=== PATIENT | female | born 1960 | race Hispanic/Latino ===

== ENCOUNTER 2020-10-23 14:09 | Emergency (ER) | payer MEDICARE ==
--- NOTE | 2020-10-23 15:52 | Emergency Department Report ---
Blank Doc - Documentation Documentation: 60-year-old female that presents with depression. Denies any suicidal or homi cidal ideation. Patient states she wants to be seen for psychiatric consult. 1- This initial assessment/diagnostic orders/clinical plan/ treatment(s) is/are subject to change based on pt's health status, clinical progression and re- assessment by fellow clinical providers in the ED. Further treatment and workup at subsequent clinical provers discretion. Patient/guardians urged not to elope from ED as their condition may be serious if not clinically assessed and managed. 2-psych protocol
[2020-10-23 16:58] LABS: Basophils % (Auto) 0.3 % (0.0-1.8); Eosinophils # (Auto) 0.2 K/mm3 (0.0-0.4); Hematocrit 40.4 % (30.3-42.9); Hemoglobin 14.3 gm/dl (10.1-14.3); Lymphocytes # (Auto) 1.7 K/mm3 (1.2-5.4); Lymphocytes % (Auto) 15.7 % (13.4-35.0); Mean Corpuscular HGB Conc 36 % (30-34); Mean Corpuscular Volume 93 fl (79-97); Monocytes # (Auto) 0.8 K/mm3 (0.0-0.8); Monocytes % (Auto) 7.7 % (0.0-7.3); Platelet Count 125 K/mm3 (140-440); Red Blood Count 4.33 M/mm3 (3.65-5.03); Red Cell Distribution Width 13.5 % (13.2-15.2)
[2020-10-23 17:10] LABS: Blood Urea Nitrogen 9 mg/dL (7-17); Calcium 9.4 mg/dL (8.4-10.2); Hemolysis Index 5
[2020-10-23 17:12] LABS: BUN/Creatinine Ratio 13
[2020-10-23] MEDS ORDERED: diphenhydrAMINE 25 MG CAP PO PRN (23:45)
[2020-10-23] MEDS ORDERED: ACETAMINOPHEN 325 MG TAB PO PRN (23:45)
[2020-10-23] MEDS ORDERED: LORazepam 2 MG/ML VIAL IM PRN (23:45)
[2020-10-23] MEDS ORDERED: PROMETHAZINE 25 MG TAB PO PRN (23:49)
--- NOTE | 2020-10-23 23:59 | Emergency Department Report ---
ED General Adult HPI - General Chief complaint: Psych Stated complaint: MENTAL HEALTH PUI?: No Time Seen by Provider: 10/23/20 15:50 Source: patient, RN notes reviewed, old records reviewed Mode of arrival: Ambulatory Limitations: No Limitations - History of Present Illness Initial comments: The patient was evaluated in the emergency department for symptoms described in the history of present illness. He/she was evaluated in the context of the global COVID-19 pandemic, which necessitated consideration that the patient might be at risk for infection with the virus that causes COVID-19. Institutional protocols and algorithms that pertain to the evaluation of patients at risk for COVID-19 are in a state of rapid change based on information released by regulatory bodies including the CDC and federal and state organizations. These policies and algorithms were followed during the patient's care in the emergency department. Please note that these policies, procedures and recommendations changed on a rapid basis. The patient is a 60-year-old female who presents to the ER today with a complaint of suicidality. She states that she was living with her son, and she was kicked out of his house a few days ago, "because I was doing drugs." The patient has not attempted to overdose on anything by her history. She complains of chronic back pain and headache, "because I was sitting in the waiting room for too long." The patient states she received 2 COVID-19 vaccinations, and denies Covid symptomatology. The patient states that she was using recreational drugs a few days ago, and she may have had a seizure or convulsive events, in front of the children of her son. Because of this, she reports that her son k icked her out of the house. The patient denies neck pain, chest pain, abdominal pain, new/different shortness of breath, urinary symptoms. She is not having homicidal thoughts, she does not have access to guns or firearms. Her past medical history includes bronchitis/COPD, hypothyroidism, chronic headaches, and history of overdose. She may also have a history of dependent edema, high cholesterol, GERD/, gastritis, And possible CHF. Sensation of depression and suicidality constant for the past few days. Worsens after being kicked out of the house. No relieving factors that she articulates. -: Gradual, days(s) Quality: other Consistency: other Improves with: other Worsens with: other Associated Symptoms: other - Related Data Home Medications Medication Instructions Recorded Confirmed Last Taken Levothyroxine [Synthroid] 100 mcg PO DAILY 03/01/13 06/12/13 06/11/13 Primidone [Mysoline] 50 mg PO QID 03/01/13 06/12/13 06/11/13 Aspirin [Aspirin Enteric Coated] 81 mg PO DAILY 06/12/13 06/12/13 06/11/13 Baclofen [Lioresal] 10 mg PO QID 06/12/13 06/12/13 06/11/13 Clorazepate Dipotassium (Nf) 7.5 mg PO TID 06/12/13 06/12/13 06/11/13 [Tranxene (Nf)] Dicyclomine [Bentyl] 20 mg PO QID 06/12/13 06/12/13 06/11/13 Divalproex [Maurice Rebolledo] 500 mg PO QAM 06/12/13 06/12/13 06/11/[address] [place]] 1,000 mg PO QPM 06/12/13 06/12/13 06/11/13 Metoprolol [Lopressor TAB] 25 mg PO BID 06/12/13 06/12/13 06/11/13 Pantoprazole [Protonix TAB] 40 mg PO DAILY 06/12/13 06/12/13 06/11/13 QUEtiapine [Seroquel] 100 mg PO QAM 06/12/13 06/12/13 06/11/13 QUEtiapine [Seroquel] 300 mg PO QHS 06/12/13 06/12/13 06/11/13 buPROPion XL [Wellbutrin Xl] 150 mg PO DAILY 06/12/13 06/12/13 06/11/13 buprenorphine hcl [Subutex] 2 mg PO TID 06/12/13 06/12/13 06/11/13 glipiZIDE [Glucotrol] 5 mg PO BID 06/12/13 06/12/13 06/11/13 Previous Rx's Medication Instructions Recorded Last Taken Type Albuterol *Only Ed* [Proventil 2.5 mg IH Q6HRT PRN #1 nebu 07/06/13 Unknown Rx 0.5% NEBS] Tiotropium [Spiriva] 1 puff IH Q24HRT #1 box 07/06/13 Unknown Rx amLODIPine 10 mg PO QDAY #30 tablet 07/06/13 Unknown Rx Nitrofurantoin [place]/M-Cryst 100 mg PO Q12HR #13 capsule 10/24/20 Unknown Rx [Macrobid CAP] Allergies Allergy/AdvReac Type Severity Reaction Status Date / Time Sulfa (Sulfonamide Allergy Severe Swelling Verified 06/19/13 16:46 Antibiotics) morphine Allergy Unknown Unknown Verified 03/01/13 15:37 ED Review of Systems ROS: Stated complaint: MENTAL HEALTH Other details as noted in HPI Constitutional: other (Denies loss of taste and smell) Eyes: denies: eye discharge ENT: denies: epistaxis Respiratory: cough (Chronic cough) Cardiovascular: denies: chest pain Gastrointestinal: denies: abdominal pain Genitourinary: denies: dysuria Musculoskeletal: arthralgia Neurological: headache, weakness Psychiatric: suicidal thoughts ED Past Medical Hx - Past Medical History Previous Medical History?: Yes Hx Hypertension: Yes Hx Congestive Heart Failure: No Hx Diabetes: Yes Hx GERD: Yes Hx Seizures: Yes Hx Psychiatric Treatment: Yes (psychosis) Hx Asthma: No Hx COPD: No Additional medical history: back pain - Surgical History Past Surgical History?: Yes Hx Pacemaker: Yes - Social History Smoking Status: Current Every Day Smoker Substance Use Type: Alcohol, Marijuana, Methamphetamines - Medications Home Medications: Home Medications Medication Instructions Recorded Confirmed Last Taken Type Levothyroxine [Synthroid] 100 mcg PO DAILY 03/01/13 06/12/13 06/11/13 History Primidone [Mysoline] 50 mg PO QID 03/01/13 06/12/13 06/11/13 History Aspirin [Aspirin Enteric Coated] 81 mg PO DAILY 06/12/13 06/12/13 06/11/13 Hi story Baclofen [Lioresal] 10 mg PO QID 06/12/13 06/12/13 06/11/13 History Clorazepate Dipotassium (Nf) 7.5 mg PO TID 06/12/13 06/12/13 06/11/13 History [Tranxene (Nf)] Dicyclomine [Bentyl] 20 mg PO QID 06/12/13 06/12/13 06/11/13 History Divalproex [Depakote Dr] 500 mg PO QAM 06/12/13 06/12/13 06/11/[address] [Depakote] 1,000 mg PO QPM 06/12/13 06/12/13 06/11/13 History Metoprolol [Lopressor TAB] 25 mg PO BID 06/12/13 06/12/13 06/11/13 History Pantoprazole [Protonix TAB] 40 mg PO DAILY 06/12/13 06/12/13 06/11/13 History QUEtiapine [Seroquel] 100 mg PO QAM 06/12/13 06/12/13 06/11/13 History QUEtiapine [Seroquel] 300 mg PO QHS 06/12/13 06/12/13 06/11/13 History buPROPion XL [Wellbutrin Xl] 150 mg PO DAILY 06/12/13 06/12/13 06/11/13 History buprenorphine hcl [Subutex] 2 mg PO TID 06/12/13 06/12/13 06/11/13 History glipiZIDE [Glucotrol] 5 mg PO BID 06/12/13 06/12/13 06/11/13 History Albuterol *Only Ed* [Proventil 2.5 mg IH Q6HRT PRN #1 nebu 07/06/13 Unknown Rx 0.5% NEBS] Tiotropium [Spiriva] 1 puff IH Q24HRT #1 box 07/06/13 Unknown Rx amLODIPine 10 mg PO QDAY #30 tablet 07/06/13 Unknown Rx Nitrofurantoin [place]/M-Cryst 100 mg PO Q12HR #13 capsule 10/24/20 Unknown Rx [Macrobid CAP] ED Physical Exam - General Limitations: No Limitations General appearance: alert, anxious, obese - Head Head exam: Present: atraumatic, normocephalic - Eye Eye exam: Present: normal appearance, EOMI - ENT ENT exam: Present: normal exam, normal orophraynx, mucous membranes moist, normal external ear exam - Neck Neck exam: Present: normal inspection, full ROM. Absent: tenderness, me ningismus - Respiratory Respiratory exam: Present: normal lung sounds bilaterally. Absent: respiratory distress, wheezes, rales, rhonchi, stridor, decreased breath sounds, prolonged expiratory - Cardiovascular Cardiovascular Exam: Present: regular rate, normal rhythm, normal heart sounds. Absent: bradycardia, tachycardia, irregular rhythm, systolic murmur, diastolic murmur, rubs, gallop - GI/Abdominal GI/Abdominal exam: Present: soft. Absent: distended, tenderness, guarding, rebound, rigid, pulsatile mass - Extremities Exam Extremities exam: Present: normal inspection, full ROM, other (2+ pulses noted in the bilateral upper and lower extremities. There is no palpable cord. negative Homans sign. Muscular compartments are soft. The pelvis is stable.). Absent: pedal edema, calf tenderness - Back Exam Back exam: Present: normal inspection. Absent: tenderness, CVA tenderness (R), CVA tenderness (L), paraspinal tenderness, vertebral tenderness - Neurological Exam Neurological exam: Present: alert, oriented X3, normal gait, other (No facial droop. Tongue midline. Extraocular movements intact bilaterally. Facial sensation intact to light touch in V1, V2, V3 distribution bilaterally. 5 and a 5 strength in 4 extremities. Sensation intact to light touch in 4 extremities.). Absent: motor sensory deficit - Psychiatric Psychiatric exam: Present: suicidal ideation - Skin Skin exam: Present: warm, dry, intact, normal color. Absent: rash ED Course Vital Signs 10/23/20 10/24/20 10/24/20 15:47 06:47 08:05 Temperature 98.6 F 98.4 F Pulse Rate 82 90 Respiratory 18 18 18 Rate Blood Pressure 164/85 Blood Pressure 103/67 [Left] O2 Sat by Pulse 96 96 Oximetry 10/24/20 10/24/20 20:11 20:26 Temperature 98.0 F Pulse Rate 60 Respiratory 16 18 Rate Blood Pressure Blood Pressure 119/61 [Left] O2 Sat by Pulse 95 Oximetry - Reevaluation(s) Reevaluation #1: 10/24/20 00:18 Differential diagnosis, including but not limited to: Secondary gain, suicidality, medical clearance for psychiatric placement, history of seizure Assessment and plan: 60-year-old female, who is clinically sober and walks with a steady gait, with a GCS of 15, who presents to the ER today with a complaint of suicidality, in the context of being kicked out of her son's house, after reportedly using recreational drugs, and having had a convulsive event in front of her grandchildren. Placed on hold status, home medications reconciled, EKG fairly unremarkable, urinalysis pending, noncontrast CT scan of brain ordered. Patient has completed COVID-19 vaccination series, however, we will order Covid swab, case psychiatry team recommends 1013 hold and placement. Have discussed this plan of care with the patient, who verbalized understanding, and is amenable to this plan of care. Reassess after CT scan has resulted. 10/24/20 00:20 I do suspect that the patient may be presenting for the purposes of secondary gain, as it appears she does not have a place to go. However, I will defer to the psychiatry team to further investigate this. At the moment, she does not appear to have an immediate medical contraindication which would preclude psychiatric admission, evaluation, consultation and placement. However, if the psychiatry team recommends no acute inpatient psychiatric hospitalization, from a medical safety and suitability standpoint, it would be reasonable to discharge the patient with outpatient follow-up. She should not drive or operate motor vehicles for the next 6 months. Reevaluation #2: 10/24/20 22:11 The patient was cleared by the psychiatry team. The patient is awake, alert, oriented, sober, walks with a steady gait and exhibits decision-making capacity. This patient has the ability to care for herself independently. The patient will be given a list of homeless shelters if she so desires. In addition, it appears that keys were dropped off for her car earlier on this evening. The patient does not have an emergent medical condition at this time which requires further medical observation, or work-up. She was deemed psychiatrically suitable for discharge. This patient also demonstrates the ability, thought process and lucidity care to care for herself independently She will be discharged at this time. ED Medical Decision Making - Lab Data Result diagrams: 10/23/20 16:05 10/23/20 16:05 Vital Signs 10/23/20 15:47 Temperature 98.6 F Pulse Rate 82 Respiratory 18 Rate Blood Pressure 164/85 O2 Sat by Pulse 96 Oximetry Lab Results 10/23/20 10/23/20 10/23/20 Range/Units 16:05 16:05 16:05 WBC 10.9 (4.5-11.0) K/mm3 RBC 4.33 (3.65-5.03) M/mm3 Hgb 14.3 (10.1-14.3) gm/dl Hct 40.4 (30.3-42.9) % MCV 93 (79-97) fl MCH 33 H (28-32) pg MCHC 36 H (30-34) % RDW 13.5 (13.2-15.2) % Plt Count 125 L (140-440) K/mm3 Lymph % (Auto) 15.7 (13.4-35.0) % [place] % (Auto) 7.7 H (0.0-7.3) % Eos % (Auto) 2.0 (0.0-4.3) % Baso % (Auto) 0.3 (0.0-1.8) % Lymph # (Auto) 1.7 (1.2-5.4) K/mm3 [place] # (Auto) 0.8 (0.0-0.8) K/mm3 Eos # (Auto) 0.2 (0.0-0.4) K/mm3 Baso # (Auto) 0.0 (0.0-0.1) K/mm3 Seg Neutrophils % 74.3 H (40.0-70.0) % Seg Neutrophils # 8.1 H (1.8-7.7) K/mm3 Sodium 138 (137-145) mmol/L Potassium 4.0 (3.6-5.0) mmol/L Chloride 97.1 L (98-107) mmol/L Carbon Dioxide 31 H (22-30) mmol/L Anion Gap 14 mmol/L BUN 9 (7-17) mg/dL Creatinine 0.7 (0.6-1.2) mg/dL Estimated GFR > 60 ml/min BUN/Creatinine Ratio 13 % Glucose 86 (65-100) mg/dL Calcium 9.4 (8.4-10.2) mg/dL Salicylates < 0.3 L (2.8-20.0) mg/dL Acetaminophen (10.0-30.0) ug/mL Plasma/Serum Alcohol (0-0.07) % 10/23/20 10/23/20 Range/Units 16:05 16:05 WBC (4.5-11.0) K/mm3 RBC (3.65-5.03) M/mm3 Hgb (10.1-14.3) gm/dl Hct (30.3-42.9) % MCV (79-97) fl MCH (28-32) pg MCHC (30-34) % RDW (13.2-15.2) % Plt Count (140-440) K/mm3 Lymph % (Auto) (13.4-35.0) % [place] % (Auto) (0.0-7.3) % Eos % (Auto) (0.0-4.3) % Baso % (Auto) (0.0-1.8) % Lymph # (Auto) (1.2-5.4) K/mm3 [place] # (Auto) (0.0-0.8) K/mm3 Eos # (Auto) (0.0-0.4) K/mm3 Baso # (Auto) (0.0-0.1) K/mm3 Seg Neutrophils % (40.0-70.0) % Seg Neutrophils # (1.8-7.7) K/mm3 Sodium (137-145) mmol/L Potassium (3.6-5.0) mmol/L Chloride (98-107) mmol/L Carbon Dioxide (22-30) mmol/L Anion Gap mmol/L BUN (7-17) mg/dL Creatinine (0.6-1.2) mg/dL Estimated GFR ml/min BUN/Creatinine Ratio % Glucose (65-100) mg/dL Calcium (8.4-10.2) mg/dL Salicylates (2.8-20.0) mg/dL Acetaminophen 5.0 L (10.0-30.0) ug/mL Plasma/Serum Alcohol < 0.01 (0-0.07) % - EKG Data -: EKG Interpreted by Ut EKG shows normal: sinus rhythm Rate: normal - EKG Data 10/24/20 00:18 EKG interpreted at 23: 57 Sinus rhythm, 82 bpm. Normal axis, Q waves noted in the inferior leads, QTC prolonged, abnormal EKG, not a STEMI. - Radiology Data Radiology results: pending, report reviewed, image reviewed CT HEAD WITHOUT CONTRAST INDICATION: seizure, hx of headache TECHNIQUE: All CT scans at this location are performed using CT dose reduction for ALARA by means of automated exposure control. COMPARISON: None available. FINDINGS: BRAIN: No hemorrhage or mass effect are seen. No evidence of acute infarction is noted. 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 ORBITS: Normal as visualized. SOFT TISSUES OF HEAD: Normal. CALVARIUM: Normal. VISUALIZED PAR ANASAL SINUSES AND MASTOID AIR CELLS: Mucosal thickening is seen in the right maxillary sinus. Other sinuses are clear. No air-fluid levels are seen. ADDITIONAL FINDINGS: None. IMPRESSION: No acute intracranial abnormality. Signer Name: Alex Kennedy MD Signed: 10/24/2020 12:18 AM Workstation Name: [employer] Critical care attestation.: If time is entered above; I have spent that time in minutes in the direct care of this critically ill patient, excluding procedure time. ED Disposition Clinical Impression: Medical clearance for psychiatric admission, Depression, COPD (chronic obstructive pulmonary disease), History of seizure Disposition: - TO HOME OR SELFCARE Is pt being admited?: No Does the pt Need Aspirin: No Condition: Good Instructions: Chronic Obstructive Pulmonary Disease (ED) Additional Instructions: Do not drive or operate motor vehicles for the next 6 months, or until cleared to do so by your primary care doctor or neurologist. Please follow-up with an outpatient primary care doctor or neurologist within the next week. Recommend that patient avoid consumption of recreational drugs, as these may cause breakthrough seizure, which in turn may cause , disability, paralysis, loss of quality of life. Urinalysis suggested possible urinary tract infection. Take the antibiotics as directed. Please follow-up with your primary care doct or within the recommended timeframe for repeat checkup and evaluation, and test of cure for potential urinary tract infection. Please return to the emergency room right away with new pain, worsened pain, migration of pain, projectile vomiting, change in mental status, confusion, inability to tolerate liquid feeds, new, worsened or different symptoms not present on the initial emergency room evaluation. Patient is going to be given a list of homeless shelters that she may follow-up with, if she needs a place to go. In addition, if the patient would like to pursue outpatient detox for her recreational drug use, she may do so at her convenience in any of the listed outpatient facilities. Per psych provider, Vero Dewitt, Pt has been cleared by psych. Outpatient resources placed in d/c instructions. Resources include [place] Crisis line, psychiatric providers, and substance abuse resources. In case of an emergency, please contact the following numbers: [place] Crisis and Access Line: Number: Crisis Text Line: (Text START) Number: 469313 Suicide Prevention Line: Number: Emergency Number: 911 SUBSTANCE ABUSE PROGRAMS: [facility]: Location: [place], [place] [facility] Address: [address] [place] [address] [facility]: Address: [address] [place] [address]\\ [facility]: Address: [address] [place] [address] [facility]: Address: [address] [place] [address] [facility] Address: [address] [place] [address]. Please contact above numbers to attempt placement into free based program. Medicaid Programs: [facility]: Address: [address] [place] [address] [facility]: Address: [address] [place] [address] Professional and Agency Contacts To help Res[facility] Crises(24/12) [place] Crisis Line: Suicide Prevention Line: Crisis Text Line: Text START to 919039 Emergency: 911 Outpatient COMMUNITY Behavioral Health Resources: MELISSA: [facility] [address] [place], [place] [address] [place]: [facility] [address] [place] [address] [place]: [facility] - [address] [place] [address] Saturday thru Saturday - 8am - 5pm [place]: [facility] Address: [address], [place] [address] [facility] Address: [address] [facility], [place] [address] Saturday thru Saturday- 7am-2pm [facility] Address: [address], [place] [address] Saturday thru Saturday: 8:30AM-5PM Phone: [phone] Referrals: JB SCRUGGS MD [Primary Care Provider] - 3-5 Days HEIDE ALEJANDRA MD [Staff Physician] - 3-5 Days ANDRES ZAZUETA MD [Referring] - 3-5 Days
--- NOTE | 2020-10-24 01:22 | Cat Scan Report ---
CT HEAD WITHOUT CONTRAST INDICATION: seizure, hx of headache TECHNIQUE: All CT scans at this location are performed using CT dose reduction for ALARA by means of automated exposure control. COMPARISON: None available. FINDINGS: BRAIN: No hemorrhage or mass effect are seen. No evidence of acute infarction is noted. Old area of i nfarction is seen in the right parietal lobe. ORBITS: Normal as visualized. SOFT TISSUES OF HEAD: Normal. CALVARIUM: Normal. VISUALIZED PARANASAL SINUSES AND MASTOID AIR CELLS: Mucosal thickening is seen in the right maxillary sinus. Other sinuses are clear. No air-fluid levels are seen. ADDITIONAL FINDINGS: None. IMPRESSION: No acute intracranial abnormality. Signer Name: Alex Kennedy MD Signed: 10/24/2020 1:18 AM Workstation Name: [id number]
[2020-10-24] MEDS ORDERED: LEVOTHYROXINE 25 MCG TAB PO SCH (06:00)
[2020-10-24] MEDS: ALBUTEROL PO SCH ×4 (08:37→22:37)
[2020-10-24] MEDS: BACLOFEN 10 MG TAB PO SCH ×3 (08:37→22:34)
[2020-10-24] MEDS: IPRATROPIUM PO SCH ×4 (08:37→22:37)
[2020-10-24 09:30] LABS: Amphetamine Screen,Urine Negative; Benzodiazepines Screen,Urine Negative; Cannabinoid Screen,Urine Negative; Cocaine Screen,Urine Negative; Methadone Screen,Urine Negative; Opiate Screen,Urine Negative
[2020-10-24 09:38] LABS: Bacteria,Urine 2+ /HPF (Negative); Bilirubin,Urine NEG (Negative); Blood,Urine MOD (Negative); Color,Urine Yellow (Yellow); Mucus,Urine FEW /HPF; Protein,Urine <15 mg/dL mg/dL (Negative)
[2020-10-24] MEDS ORDERED: TORSEMIDE 10 MG TAB PO SCH (10:00)
[2020-10-24] MEDS ORDERED: POTASSIUM CHLORIDE ER 20 MEQ TAB PO SCH (10:00)
[2020-10-24] MEDS ORDERED: PROPRANOLOL 10 MG TAB PO SCH (10:00)
[2020-10-24] MEDS ORDERED: SPIRONOLACTONE 50 MG TAB PO SCH (10:00)
[2020-10-24] MEDS ORDERED: lamoTRIgine 100 MG TAB PO SCH (10:00)
[2020-10-24] MEDS ORDERED: PANTOPRAZOLE 40 MG TAB PO SCH (10:00)
[2020-10-24] MEDS ORDERED: GABAPENTIN 300 MG CAP PO SCH ×2 (10:00→18:00)
[2020-10-24] MEDS ORDERED: levoFLOXacin 500 MG TAB PO ONE (10:29)
--- NOTE | 2020-10-24 10:29 | Emergency Department Report ---
Blank Doc - Documentation Documentation: Patient is 60 years old female presented with suicidal ideation. No medical complaint. Vital sign stable. Labs reviewed and showed UTI. Patient started on ciprofloxacin 500 mg twice a day for 7 days.
--- NOTE | 2020-10-24 10:33 | Consultation ---
History of Present Illness - Reason for Consult Consult date: 10/24/20 Reason for consult: Depression - History of Present Psychiatric Illness Per ED note: The patient is a 60-year-old female who presents to the ER today with a complaint of suicidality. She states that she was living with her son, and she was kicked out of his house a few days ago, "because I was doing drugs." The patient has not attempted to overdose on anything by her history. She complains of chronic back pain and headache, "because I was sitting in the waiting room for too long." The patient states she received 2 COVID-19 vaccinations, and denies Covid symptomatology. The patient states that she was using recreational drugs a few days ago, and she may have had a seizure or convulsive events, in front of the children of her son. Because of this, she reports that her son kicked her out of the house. The patient denies neck pain, chest pain, abdominal pain, new/different shortness of breath, urinary symptoms. She is not having homicidal thoughts, she does not have access to guns or firearms. The patient is a 60y/o female who was seen today. The patient says she is depressed. She says "because I bought methodone on the street and my son found out and kicked me out." When asking the patient was she SI/HI. She says "well, I have no where to go. My son kicked me out so that makes me feel that way." She denies having a plan or any access to a gun. The patient says she is "addicted to methadone." She denies a psych doctor but says she sees "[facility] for my ce[facility]a." She denies hallucinations of any kind. PAST PSYCHIATRIC HISTORY Diagnoses: Depression Suicide attempts or Self-harm behavior: yes Prior psychiatric hospitalizations: Denies Substance Abuse history: Methadone Previous psychiatric medications tried: Celexa, klonopin [facility]: [facility]" PAST MEDICAL HISTORY: bronchitis/COPD, hypothyroidism, chronic headaches, and history of overdose Family Psychiatric History: None reported or documented SOCIAL HISTORY Marital Status: Living Arrangements: [facility] Employment Status: [employer] Access to guns/weapons: None reported Education: college History of Abuse: None reported Legal History: None reported REVIEW OF SYSTEMS Constitutional: Negative for weight loss ENT: Negative for stridor Respiratory: Negative for cough or hemoptysis All other systems reviewed and are negative MENTAL STATUS EXAMINATION General Appearance and Behavior: Age appropriate, good hygiene, wearing appropriate clothes, good eye contact, cooperative polite with questioning. Cooperation: Participating/engaged Psychomotor Behavior: unremarkable and within normal limits Mood: depressed Affect and affective range: Euthymic Thought Process: Fluent/Logical Thought Content: Within reality Speech: Normal volume, Regular rate and rhythm Intellectual Functioning: Average Suicidal Ideation: states it's due to her son kicking her out Homicidal Ideation: Denies HI Hallucinations: Denies Delusions: Note elicited Impulse Control: Unimpaired Insight and Judgment: Normal insight and judgment, Memory: Normal Attention: Normal Orientation: Alert, oriented x 3 Assessment (1) Major Depressive Disorder Current Visit: Yes Status: Acute Treatment Plan Continue current medications Case management to follow up with patient about placement Sitter: Defer to primary Medical: Per primary Disposition: Do not recommend acute psychiatric inpatient treatment. The patient symptoms seem to correlate with her not having anywhere to go [facility] to give her resources for outpatient, CBT, correction resources and drug rehab Will sign off Case staffed with Dr. Zheng Medications and Allergies Allergies Allergy/AdvReac Type Severity Reaction Status Date / Time Sulfa (Sulfonamide Allergy Severe Swelling Verified 06/19/13 16:46 Antibiotics) morphine Allergy Unknown Unknown Verified 03/01/13 15:37 Home Medications Medication Instructions Recorded Confirmed Last Taken Type Levothyroxine [Synthroid] 100 mcg PO DAILY 03/01/13 06/12/13 06/11/13 History Primidone [Mysoline] 50 mg PO QID 03/01/13 06/12/13 06/11/13 History Aspirin [Aspirin Enteric Coated] 81 mg PO DAILY 06/12/13 06/12/13 06/11/13 History Baclofen [Lioresal] 10 mg PO QID 06/12/13 06/12/13 06/11/13 History Clorazepate Dipotassium (Nf) 7.5 mg PO TID 06/12/13 06/12/13 06/11/13 History [Tranxene (Nf)] Dicyclomine [Bentyl] 20 mg PO QID 06/12/13 06/12/13 06/11/13 History Divalproex [Maurice Rebolledo] 500 mg PO QAM 06/12/13 06/12/13 06/11/[address] [place]] 1,000 mg PO QPM 06/12/13 06/12/13 06/11/13 History Metoprolol [Lopressor TAB] 25 mg PO BID 06/12/13 06/12/13 06/11/13 History Pantoprazole [Protonix TAB] 40 mg PO DAILY 06/12/13 06/12/13 06/11/13 History QUEtiapine [Seroquel] 100 mg PO QAM 06/12/13 06/12/13 06/11/13 History QUEtiapine [Seroquel] 300 mg PO QHS 06/12/13 06/12/13 06/11/13 History buPROPion XL [Wellbutrin Xl] 150 mg PO DAILY 06/12/13 06/12/13 06/11/13 History buprenorphine hcl [Subutex] 2 mg PO TID 06/12/13 06/12/13 06/11/13 History glipiZIDE [Glucotrol] 5 mg PO BID 06/12/13 06/12/13 06/11/13 History Albuterol *Only Ed* [Proventil 2.5 mg IH Q6HRT PRN #1 nebu 07/06/13 Unknown Rx 0.5% NEBS] Tiotropium [Spiriva] 1 puff IH Q24HRT #1 box 07/06/13 Unknown Rx amLODIPine 10 mg PO QDAY #30 tablet 07/06/13 Unknown Rx Active Meds: Active Medications Acetaminophen (Acetaminophen 325 Mg Tab) 650 mg PO Q6HR PRN PRN Reason: PAIN Baclofen (Baclofen 10 Mg Tab) 20 mg PO TID [facility] Last Admin: 10/24/20 08:37 Dose: 20 mg Documented by: Diphenhydramine HCl (Diphenhydramine 25 Mg Cap) 50 mg PO QHS PRN PRN Reason: Insomnia Gabapentin (Gabapentin 300 Mg Cap) 300 mg PO QAM [facility] Gabapentin (Gabapentin 300 Mg Cap) 600 mg PO QPM [facility] Lamotrigine (Lamotrigine 100 Mg Tab) 200 mg PO QDAY [facility] Levothyroxine Sodium (Levothyroxine 25 Mcg Tab) 25 mcg PO DAILY@0600 [facility] Lorazepam (Lorazepam 2 Mg/Ml Vial) 2 mg IM Q4HR PRN PRN Reason: Agitation Miscellaneous Medication (Lovastatin 20mg Tablet) 20 mg PO QHS [facility]HA[facility] Miscellaneous Medication (Deutetrabenazine (Austedo) 12mg Tab) 12 mg PO BID MICHAEL Miscellaneous Medication (Combivent Respimat Inhalation [place]) 1 puff PO QIDRT MICHAEL Last Admin: 10/24/20 08:37 Dose: Not Given Documented by: Pantoprazole Sodium (Pantoprazole 40 Mg Tab) 40 mg PO QDAY MICHAEL Potassium Chloride (Potassium Chloride Er 20 Meq Tab) 20 meq PO QAM MICHAEL Promethazine HCl (Promethazine 25 Mg Tab) 25 mg PO Q8HR PRN PRN Reason: Headache Propranolol HCl (Propranolol 10 Mg Tab) 20 mg PO QDAY MICHAEL Spironolactone (Spironolactone 50 Mg Tab) 100 mg PO QDAY MICHAEL Torsemide (Torsemide 10 Mg Tab) 20 mg PO QDAY [facility] Mental Status Exam - Vital signs Last Vital Signs Temp 98.4 F 10/24/20 08:05 Pulse 90 10/24/20 08:05 Resp 18 10/24/20 08:05 BP 103/67 10/24/20 08:05 Pulse Ox 96 10/24/20 08:05 Results Result Diagrams: 10/23/20 16:05 10/23/20 16:05 Abnormal lab results 10/23/20 10/23/20 10/23/20 Range/Units 16:05 16:05 16:05 MCH 33 H (28-32) pg MCHC 36 H (30-34) % Plt Count 125 L (140-440) K/mm3 [place] % (Auto) 7.7 H (0.0-7.3) % Seg Neutrophils % 74.3 H (40.0-70.0) % Seg Neutrophils # 8.1 H (1.8-7.7) K/mm3 Chloride 97.1 L (98-107) mmol/L Carbon Dioxide 31 H (22-30) mmol/L TSH (0.270-4.200) mlU/mL Urine WBC (Auto) (0.0-6.0) /HPF U Epithel Cells (Auto) (0-13.0) /HPF Salicylates < 0.3 L (2.8-20.0) mg/dL Acetaminophen (10.0-30.0) ug/mL 10/23/20 10/24/20 10/24/20 Range/Units 16:05 Unknown Unknown MCH (28-32) pg MCHC (30-34) % Plt Count (140-440) K/mm3 [place] % (Auto) (0.0-7.3) % Seg Neutrophils % (40.0-70.0) % Seg Neutrophils # (1.8-7.7) K/mm3 Ch[place] (98-107) mmol/L Carbon Dioxide (22-30) mmol/L TSH 4.310 H (0.270-4.200) mlU/mL Urine WBC (Auto) 179.0 H (0.0-6.0) /HPF U Epithel Cells (Auto) 28.0 H (0-13.0) /HPF Salicylates (2.8-20.0) mg/dL Acetaminophen 5.0 L (10.0-30.0) ug/mL All other labs normal.
[2020-10-24] MEDS: DEUTETRABENAZINE 12 MG PO SCH ×2 (12:09→22:36)
[2020-10-24 20:27] VITALS: BP 119/61
[2020-10-24] MEDS ORDERED: LOVASTATIN 20 MG PO SCH (22:00)
[2020-10-24] MEDS ORDERED: NITROFURANTOIN MONOHYD/M-CRYST 100 MG CAP PO SCH (23:00)
--- NOTE | 2020-10-25 10:33 | Electrocardiograph Report ---
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
== END 2020-10-24 23:00 | disposition home or self-care (01) ==
LOC: ED 14:09
DX: F32.9 Major depressive disorder, single episode, unspecified (principal); J44.9 Chronic obstructive pulmonary disease, unspecified; G40.909 Epilepsy, unspecified, not intractable, without status epilepticus; I10 Essential (primary) hypertension; E11.9 Type 2 diabetes mellitus without complications; K21.9 Gastro-esophageal reflux disease without esophagitis; F17.200 Nicotine dependence, unspecified, uncomplicated; F12.90 Cannabis use, unspecified, uncomplicated; F15.90 Other stimulant use, unspecified, uncomplicated; Z20.822 Contact with and (suspected) exposure to COVID-19; Z88.8 Allergy status to other drugs, medicaments and biological substances; Z88.2 Allergy status to sulfonamides; Z79.899 Other long term (current) drug therapy; Z00.8 Encounter for other general examination
CPT/HCPCS: 36415; 70450; 80048; 80307; 81001; 82550; 83735; 84443; 85025; 93005; 99284; U0003; 80320; G0480